=== PATIENT | female | born 2000 | race Caucasian/White ===

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

== ENCOUNTER → 2020-03-03 | Outpatient (REF) | payer OTHER ==
[~2020-03-03] MED LIST changes: +EPIN0.3I11 IM; -MONT10TA4; +MONT5TAB2
[2020-03-03 15:47] LABS: HEMATOCRIT 41.4 % (36.0-47.0); HEMOGLOBIN 11.8 g/dl (12.0-15.5); MEAN CORPUSCULAR HEMOGLOBIN 22.6 pg (27.0-33.0); MEAN CORPUSCULAR HGB CONC 28.5 g/dl (32.0-36.5); MEAN CORPUSCULAR VOLUME 79.5 fl (80.0-96.0); PLATELET COUNT, AUTOMATED 358 10^3/uL (150-450); RED BLOOD COUNT 5.21 10^6/uL (4.00-5.40)
[2020-03-03 16:02] LABS: HCG, SERUM QUALITATIVE NEGATIVE (NEGATIVE)
[2020-03-03 16:14] LABS: FERRITIN 28 NG/ML (8-252); IRON (FE) 31 UG/DL (50-170); PERCENT SATURATION 8.4 % (13.2-45.0); TOTAL IRON BINDING CAPACITY 369 UG/DL (250-450)
[2020-03-03 16:17] LABS: TOTAL 25(OH) VITAMIN D 13.7 NG/ML (30.0-100.0)
[2020-03-03 16:18] LABS: ESTRADIOL 48.4 PG/ML; LUTEINIZING HORMONE 5.5 mIU/mL; PROLACTIN 3.8 NG/ML
[2020-03-03 16:19] LABS: FOLLICLE STIMULATING HORMONE 7.8 mIU/mL
[2020-03-05 18:13] LABS: TESTOSTERONE FREE (DIRECT) 1.5 pg/mL (0.0-4.2)
== END ==
LOC: M SFHCPLAZ 12:36
PROVIDERS: ATTEND Family Medicine
DX: Z86.2 Personal history of diseases of the blood and blood-forming organs and certain disorders involving the immune mechanism (principal); N91.1 Secondary amenorrhea; E55.9 Vitamin D deficiency, unspecified

== ENCOUNTER → 2020-06-01 | Outpatient (CLI) | payer OTHER ==
[~2020-06-01] MED LIST changes: +MONT10TA10; -MONT5TAB2
[2020-06-01 13:54] LABS: HEMATOCRIT 41.2 % (36.0-47.0); HEMOGLOBIN 12.5 g/dl (12.0-15.5); MEAN CORPUSCULAR HEMOGLOBIN 24.1 pg (27.0-33.0); MEAN CORPUSCULAR HGB CONC 30.3 g/dl (32.0-36.5); MEAN CORPUSCULAR VOLUME 79.5 fl (80.0-96.0); PLATELET COUNT, AUTOMATED 373 10^3/uL (150-450); RED BLOOD COUNT 5.18 10^6/uL (4.00-5.40); WHITE BLOOD COUNT 15.3 10^3/uL (4.0-10.0)
[2020-06-01 14:29] LABS: PERCENT SATURATION 20.1 % (13.2-45.0)
== END ==
LOC: M LAB 13:22
PROVIDERS: ATTEND Family Medicine
DX: D50.9 Iron deficiency anemia, unspecified (principal)

== ENCOUNTER 2021-04-27 14:03 | Emergency (ER) | payer OTHER ==
[~2021-04-27] VITALS: Ht 154.9 cm; Wt 116.4 kg
[~2021-04-27 14:03] MED LIST changes: -IBUP200T45 PO; +IBUP200T46 PO; -MONT10TA10; +MONT10TA97
[2021-04-27] MEDS ORDERED: LAMO100T3 (14:11)
[2021-04-27] MEDS ORDERED: EPIN0.3I11 IM (14:19)
[2021-04-27] MEDS ORDERED: diphenhydrAMINE 50MG CAP PO ONE (14:20)
[2021-04-27] MEDS ORDERED: PRED20TA PO (14:20)
[2021-04-27] MEDS ORDERED: predniSONE 20 MG TAB PO ONE (14:20)
[2021-04-27] MEDS ORDERED: FAMOTIDINE 20 MG TAB PO ONE (14:20)
[2021-04-27 16:29] VITALS: BP 115/65
== END 2021-04-27 16:44 | disposition home or self-care (01) ==
LOC: M ED 14:03
DX: T78.04XA Anaphylactic reaction due to fruits and vegetables, initial encounter (principal); F41.8 Other specified anxiety disorders; F32.A Depression, unspecified; J45.909 Unspecified asthma, uncomplicated; Z91.018 Allergy to other foods
CPT/HCPCS: 99284; J7512

== ENCOUNTER → 2021-05-05 | Outpatient (CLI) | payer OTHER ==
[~2021-05-05] MED LIST changes: +LAMO100T3; +PRED20TA PO
[2021-05-05 12:33] LABS: HEMATOCRIT 37.2 % (36.0-47.0); HEMOGLOBIN 11.4 g/dl (12.0-15.5); MEAN CORPUSCULAR HEMOGLOBIN 23.9 pg (27.0-33.0); MEAN CORPUSCULAR HGB CONC 30.6 g/dl (32.0-36.5); PLATELET COUNT, AUTOMATED 331 10^3/uL (150-450); RED BLOOD COUNT 4.77 10^6/uL (4.00-5.40); WHITE BLOOD COUNT 10.4 10^3/uL (4.0-10.0)
[2021-05-05 13:03] LABS: PERCENT SATURATION 6.7 % (13.2-45.0)
== END ==
LOC: M LAB 11:41
PROVIDERS: ATTEND Family Medicine
DX: Z13.1 Encounter for screening for diabetes mellitus (principal)

== ENCOUNTER → 2021-09-15 | Outpatient (CLI) | payer OTHER ==
[~2021-09-15] MED LIST changes: +ALBU2.5V10 NEB; -ALBU83IN NEB
[2021-09-15 14:57] LABS: BASO # 0.1 10^3/uL (0.0-0.2); BASO % 0.5 % (0.0-1.0); EOS # 0.3 10^3/uL (0.0-0.5); EOS % 2.7 % (0.0-3.0); HEMATOCRIT 36.8 % (36.0-47.0); HEMOGLOBIN 10.8 g/dl (12.0-15.5); LYMPH # 2.7 10^3/uL (1.5-5.0); LYMPH % 29.3 % (24.0-44.0); MEAN CORPUSCULAR HEMOGLOBIN 22.2 pg (27.0-33.0); MEAN CORPUSCULAR HGB CONC 29.3 g/dl (32.0-36.5); MEAN CORPUSCULAR VOLUME 75.7 fl (80.0-96.0); MONO # 0.6 10^3/uL (0.0-0.8); MONO % 6.4 % (2.0-8.0); NEUTROPHILS # 5.6 10^3/uL (1.5-8.5); NEUTROPHILS % 60.9 % (36.0-66.0); PLATELET COUNT, AUTOMATED 381 10^3/uL (150-450); RED BLOOD COUNT 4.86 10^6/uL (4.00-5.40); WHITE BLOOD COUNT 9.2 10^3/uL (4.0-10.0)
[2021-09-15 15:18] LABS: HEMOGLOBIN A1c 5.9 %
[2021-09-15 15:31] LABS: ALBUMIN 3.6 GM/DL (3.2-5.2); ALT/SGPT 15 U/L (12-78); BILIRUBIN,TOTAL 0.4 MG/DL (0.2-1.0); BLOOD UREA NITROGEN 12 MG/DL (7-18); CALCIUM LEVEL 9.5 MG/DL (8.5-10.1); CARBON DIOXIDE LEVEL 26 MEQ/L (21-32); CHLORIDE LEVEL 112 MEQ/L (98-107); CREATININE FOR GFR 0.77 MG/DL (0.55-1.30); GLOMERULAR FILTRATION RATE > 60.0 (>60); GLUCOSE, FASTING 92 MG/DL (70-100); IRON (FE) 21 UG/DL (50-170); PERCENT SATURATION 5.2 % (13.2-45.0); POTASSIUM SERUM 3.9 MEQ/L (3.5-5.1); SODIUM LEVEL 143 MEQ/L (136-145); THYROID STIMULATING HORMONE 0.826 uIU/ML (0.358-3.740); TOTAL IRON BINDING CAPACITY 401 UG/DL (250-450); TOTAL PROTEIN 7.6 GM/DL (6.4-8.2)
== END ==
LOC: M LAB 14:10
PROVIDERS: ATTEND Physician Assistant
DX: D50.9 Iron deficiency anemia, unspecified (principal); N92.0 Excessive and frequent menstruation with regular cycle; R73.03 Prediabetes

== ENCOUNTER 2021-10-11 11:15 | Emergency (ER) | payer OTHER ==
[~2021-10-11] VITALS: Ht 154.9 cm; Wt 109.3 kg
[~2021-10-11 11:15] MED LIST changes: -ASMA220A INH; +MOME220A INH
[2021-10-11] MEDS ORDERED: NORE1TAB94 (11:46)
[2021-10-11] MEDS ORDERED: BUSP15TA47 PO (11:46)
[2021-10-11 14:00] VITALS: BP 150/72
== END 2021-10-11 14:07 | disposition home or self-care (01) ==
LOC: M ED 11:15
DX: S63.501A Unspecified sprain of right wrist, initial encounter (principal); X50.0XXA Overexertion from strenuous movement or load, initial encounter; J02.9 Acute pharyngitis, unspecified; J45.909 Unspecified asthma, uncomplicated; Z91.02 Food additives allergy status; Y92.9 Unspecified place or not applicable; Y93.9 Activity, unspecified; Y99.9 Unspecified external cause status

== ENCOUNTER 2021-10-26 13:49 | Emergency (ER) | payer OTHER ==
[~2021-10-26] VITALS: Ht 154.9 cm; Wt 108.6 kg
[~2021-10-26 13:49] MED LIST changes: +BUSP15TA47 PO; +NORE1TAB94
[2021-10-26 15:38] VITALS: BP 135/78
== END 2021-10-26 15:43 | disposition home or self-care (01) ==
LOC: EDBD 13:49 → M ED 13:49
DX: T78.05XA Anaphylactic reaction due to tree nuts and seeds, initial encounter (principal); F41.9 Anxiety disorder, unspecified; J45.909 Unspecified asthma, uncomplicated; Z91.018 Allergy to other foods; Z79.51 Long term (current) use of inhaled steroids; Z79.899 Other long term (current) drug therapy

== ENCOUNTER → 2022-05-13 | Outpatient (REF) | payer OTHER ==
[~2022-05-13] MED LIST changes: -ASMA16.7; +MOME13HF4; +MONT-5 PO; -SING10TA32 PO
== END ==
LOC: M LAB REF 16:23
PROVIDERS: ATTEND Physician Assistant
DX: R11.2 Nausea with vomiting, unspecified (principal)

== ENCOUNTER 2022-06-22 15:18 | Emergency (ER) | payer OTHER ==
[~2022-06-22] VITALS: Ht 154.9 cm; Wt 107.0 kg
[~2022-06-22 15:18] MED LIST changes: +FLUT50SP17; -FLUTISP
[2022-06-22] MEDS ORDERED: BENA25CA4 PO (15:26)
[2022-06-22 19:00] VITALS: BP 141/84
== END 2022-06-22 19:14 | disposition home or self-care (01) ==
LOC: M ED 15:18
DX: T78.1XXA Other adverse food reactions, not elsewhere classified, initial encounter (principal); R21 Rash and other nonspecific skin eruption; J45.909 Unspecified asthma, uncomplicated; F41.9 Anxiety disorder, unspecified; F33.1 Major depressive disorder, recurrent, moderate; Z91.018 Allergy to other foods; Z91.048 Other nonmedicinal substance allergy status

== ENCOUNTER 2022-08-15 20:36 | Emergency (ER) | payer OTHER ==
[2022-08-15] MEDS ORDERED: NS 1,000 ML IV ONE (21:45)
[2022-08-15 22:22] LABS: BASO # 0.1 10^3/uL (0.0-0.2); BASO % 0.4 % (0.0-1.0); EOS # 0.3 10^3/uL (0.0-0.5); EOS % 2.4 % (0.0-3.0); HEMATOCRIT 35.9 % (36.0-47.0); LYMPH # 3.3 10^3/uL (1.5-5.0); LYMPH % 29.6 % (24.0-44.0); MEAN CORPUSCULAR HEMOGLOBIN 24.2 pg (27.0-33.0); MEAN CORPUSCULAR HGB CONC 30.6 g/dl (32.0-36.5); MEAN CORPUSCULAR VOLUME 78.9 fl (80.0-96.0); MONO # 0.6 10^3/uL (0.0-0.8); MONO % 5.7 % (2.0-8.0); NEUTROPHILS % 61.5 % (36.0-66.0); PLATELET COUNT, AUTOMATED 309 10^3/uL (150-450); RED BLOOD COUNT 4.55 10^6/uL (4.00-5.40); WHITE BLOOD COUNT 11.3 10^3/uL (4.0-10.0)
[2022-08-15 22:28] LABS: ALBUMIN 3.3 G/DL (3.2-5.2); ALKALINE PHOSPHATASE 94 U/L (46-116); ALT/SGPT 14 U/L (7.0-40); AST/SGOT 11 U/L (<34); BILIRUBIN,TOTAL 0.3 MG/DL (0.3-1.2); BLOOD UREA NITROGEN 13 MG/DL (9-23); CALCIUM LEVEL 8.4 MG/DL (8.5-10.1); CARBON DIOXIDE LEVEL 25 MMOL/L (20-31); CHLORIDE LEVEL 107 MMOL/L (98-107); GLOMERULAR FILTRATION RATE > 60.0 (>60); GLUCOSE, FASTING 115 MG/DL (60-100); MAGNESIUM LEVEL 1.9 MG/DL (1.8-2.4); PHOSPHORUS LEVEL 3.7 MG/DL (2.5-4.9); POTASSIUM SERUM 3.5 MMOL/L (3.5-5.1); SODIUM LEVEL 141 MMOL/L (136-145); TOTAL PROTEIN 6.6 G/DL (5.7-8.2)
[2022-08-15 22:32] LABS: FREE T4 1.08 NG/DL (0.89-1.76)
[2022-08-15 22:33] LABS: THYROID STIMULATING HORMONE 2.612 uIU/ML (0.55-4.78)
[2022-08-15] MEDS ORDERED: levETIRAcetam INJection 3,000 MG in D5W 100 ML IV ONE (23:25)
[2022-08-15] MEDS ORDERED: KEPP1TAB PO (23:25)
[2022-08-16 01:00] VITALS: BP 133/69; TEMP 98.8; O2SAT 96
== END 2022-08-16 01:19 | disposition home or self-care (01) ==
LOC: M ED 20:36
DX: G40.909 Epilepsy, unspecified, not intractable, without status epilepticus (principal); F10.10 Alcohol abuse, uncomplicated; Z91.048 Other nonmedicinal substance allergy status; Z79.52 Long term (current) use of systemic steroids; Z79.899 Other long term (current) drug therapy
CPT/HCPCS: 70450; 80053; 83735; 84100; 84439; 84443; 85025; 93005; 96365; 99285; J1953

== ENCOUNTER 2022-09-23 08:06 | Emergency (ER) | payer OTHER ==
[~2022-09-23] VITALS: Ht 154.9 cm; Wt 110.4 kg
[~2022-09-23 08:06] MED LIST changes: +KEPP1TAB PO
[2022-09-23 08:12] VITALS: BP 144/88; O2SAT 95
[2022-09-23 08:17] VITALS: TEMP 98.8
[2022-09-23] MEDS ORDERED: NS 1,000 ML IV ONE (08:20)
[2022-09-23 08:37] LABS: BASO % 0.5 % (0.0-1.0); EOS # 0.2 10^3/uL (0.0-0.5); EOS % 1.8 % (0.0-3.0); HEMOGLOBIN 11.9 g/dl (12.0-15.5); LYMPH # 2.4 10^3/uL (1.5-5.0); LYMPH % 27.9 % (24.0-44.0); MEAN CORPUSCULAR HEMOGLOBIN 24.3 pg (27.0-33.0); MEAN CORPUSCULAR HGB CONC 31.3 g/dl (32.0-36.5); MEAN CORPUSCULAR VOLUME 77.7 fl (80.0-96.0); MONO # 0.5 10^3/uL (0.0-0.8); MONO % 6.1 % (2.0-8.0); NEUTROPHILS # 5.4 10^3/uL (1.5-8.5); NEUTROPHILS % 63.2 % (36.0-66.0); PLATELET COUNT, AUTOMATED 346 10^3/uL (150-450); RED BLOOD COUNT 4.89 10^6/uL (4.00-5.40); WHITE BLOOD COUNT 8.5 10^3/uL (4.0-10.0)
[2022-09-23 09:00] LABS: LIPASE 26 U/L (12-53)
[2022-09-23 09:01] LABS: ALBUMIN 3.7 G/DL (3.2-5.2); ALKALINE PHOSPHATASE 96 U/L (46-116); ALT/SGPT 11 U/L (7.0-40); AST/SGOT < 8 U/L (<34); BILIRUBIN,DIRECT 0.4 MG/DL (<0.4); BLOOD UREA NITROGEN 12 MG/DL (9-23); CARBON DIOXIDE LEVEL 24 MMOL/L (20-31); CHLORIDE LEVEL 106 MMOL/L (98-107); CREATININE FOR GFR 0.73 MG/DL (0.55-1.30); GLOMERULAR FILTRATION RATE > 60.0 (>60); GLUCOSE, FASTING 98 MG/DL (60-100); POTASSIUM SERUM 3.9 MMOL/L (3.5-5.1); SODIUM LEVEL 141 MMOL/L (136-145); TOTAL PROTEIN 7.6 G/DL (5.7-8.2)
[2022-09-23] MEDS ORDERED: lamoTRIgine 25MG TAB PO ONE (09:05)
[2022-09-23] MEDS ORDERED: LAMI25TA PO (09:09)
[2022-09-23] MEDS ORDERED: LAMI1TAB7 PO (10:02)
== END 2022-09-23 10:34 | disposition home or self-care (01) ==
LOC: M ED 08:06
DX: G40.909 Epilepsy, unspecified, not intractable, without status epilepticus (principal); Z91.018 Allergy to other foods; Z91.048 Other nonmedicinal substance allergy status; Z79.52 Long term (current) use of systemic steroids; Z79.899 Other long term (current) drug therapy

== ENCOUNTER 2022-10-11 07:39 | Emergency (ER) | payer OTHER ==
[~2022-10-11] VITALS: Ht 154.9 cm; Wt 104.5 kg
[~2022-10-11 07:39] MED LIST changes: +LAMI1TAB7 PO; +LAMI25TA PO
[2022-10-11 07:50] VITALS: BP 138/88; TEMP 99.6; O2SAT 96
[2022-10-11] MEDS ORDERED: ONDANSETRON 4MG 2ML VIAL IV ONE (08:15)
[2022-10-11] MEDS ORDERED: ACETAMINOPHEN 500 MG TAB PO ONE (08:15)
[2022-10-11 08:36] LABS: IONIZED CALCIUM 4.6 MG/DL (4.5-5.3)
[2022-10-11 08:46] LABS: BASO % 0.5 % (0.0-1.0); EOS # 0.2 10^3/uL (0.0-0.5); EOS % 2.1 % (0.0-3.0); HEMATOCRIT 37.1 % (36.0-47.0); HEMOGLOBIN 11.2 g/dl (12.0-15.5); LYMPH # 1.7 10^3/uL (1.5-5.0); LYMPH % 20.9 % (24.0-44.0); MEAN CORPUSCULAR HEMOGLOBIN 23.9 pg (27.0-33.0); MEAN CORPUSCULAR HGB CONC 30.2 g/dl (32.0-36.5); MEAN CORPUSCULAR VOLUME 79.1 fl (80.0-96.0); MONO # 0.5 10^3/uL (0.0-0.8); MONO % 6.5 % (2.0-8.0); NEUTROPHILS # 5.5 10^3/uL (1.5-8.5); NEUTROPHILS % 69.7 % (36.0-66.0); PLATELET COUNT, AUTOMATED 304 10^3/uL (150-450); RED BLOOD COUNT 4.69 10^6/uL (4.00-5.40); WHITE BLOOD COUNT 7.9 10^3/uL (4.0-10.0)
[2022-10-11] MEDS ORDERED: lamoTRIgine 100MG TAB PO ONE ×2 (09:00)
[2022-10-11] MEDS ORDERED: lamoTRIgine 25MG TAB PO ONE (09:00)
[2022-10-11 09:08] LABS: ALBUMIN 3.4 G/DL (3.2-5.2); ALKALINE PHOSPHATASE 82 U/L (46-116); ALT/SGPT 11 U/L (7.0-40); AST/SGOT 9 U/L (<34); BILIRUBIN,DIRECT 0.3 MG/DL (<0.4); BLOOD UREA NITROGEN 10 MG/DL (9-23); CALCIUM LEVEL 8.8 MG/DL (8.5-10.1); CARBON DIOXIDE LEVEL 24 MMOL/L (20-31); CHLORIDE LEVEL 107 MMOL/L (98-107); CREATININE FOR GFR 0.77 MG/DL (0.55-1.30); GLOMERULAR FILTRATION RATE > 60.0 (>60); GLUCOSE, FASTING 99 MG/DL (60-100); MAGNESIUM LEVEL 2.1 MG/DL (1.8-2.4); PHOSPHORUS LEVEL 2.3 MG/DL (2.5-4.9); SODIUM LEVEL 141 MMOL/L (136-145)
[2022-10-11] MEDS ORDERED: LAMI1TAB8 PO (09:49)
== END 2022-10-11 10:03 | disposition home or self-care (01) ==
LOC: M ED 07:39
DX: G40.909 Epilepsy, unspecified, not intractable, without status epilepticus (principal); J45.909 Unspecified asthma, uncomplicated; D64.9 Anemia, unspecified; F41.9 Anxiety disorder, unspecified; F32.A Depression, unspecified; Z79.52 Long term (current) use of systemic steroids; Z79.899 Other long term (current) drug therapy
CPT/HCPCS: 80048; 80076; 82140; 82330; 83735; 84100; 85025; 93041; 94760; 96374; 99284; J2405

== ENCOUNTER 2023-06-01 19:33 | Emergency (ER) | payer OTHER ==
[~2023-06-01] VITALS: Ht 154.9 cm; Wt 123.0 kg
[~2023-06-01 19:33] MED LIST changes: -FLUT50SP17; +FLUTISP; +LAMI1TAB8 PO; +TIZA4CAP3 PO; -TIZA4CAP6 PO
[2023-06-01] MEDS ORDERED: DIPH-435 PO (19:46)
[2023-06-01] MEDS: predniSONE 20 MG TAB PO ONE (20:36)
[2023-06-01] MEDS: FAMOTIDINE 20MG/2ML VIAL IVP ONE (20:52)
[2023-06-01 20:58] LABS: BASO # 0.1 10^3/uL (0.0-0.2); BASO % 0.5 % (0.0-1.0); EOS # 0.6 10^3/uL (0.0-0.5); EOS % 4.1 % (0.0-3.0); HEMATOCRIT 38.1 % (36.0-47.0); HEMOGLOBIN 11.6 g/dl (12.0-15.5); LYMPH # 3.7 10^3/uL (1.5-5.0); LYMPH % 25.5 % (24.0-44.0); MEAN CORPUSCULAR HEMOGLOBIN 23.8 pg (27.0-33.0); MEAN CORPUSCULAR HGB CONC 30.4 g/dl (32.0-36.5); MEAN CORPUSCULAR VOLUME 78.1 fl (80.0-96.0); MONO # 0.8 10^3/uL (0.0-0.8); MONO % 5.7 % (2.0-8.0); NEUTROPHILS # 9.3 10^3/uL (1.5-8.5); NEUTROPHILS % 63.7 % (36.0-66.0); PLATELET COUNT, AUTOMATED 379 10^3/uL (150-450); RED BLOOD COUNT 4.88 10^6/uL (4.00-5.40); WHITE BLOOD COUNT 14.6 10^3/uL (4.0-10.0)
[2023-06-01 21:22] LABS: ALBUMIN 3.3 G/DL (3.2-5.2); ALKALINE PHOSPHATASE 93 U/L (46-116); ALT/SGPT 18 U/L (7.0-40); AST/SGOT 14 U/L (<34); BILIRUBIN,TOTAL 0.5 MG/DL (0.3-1.2); BLOOD UREA NITROGEN 13 MG/DL (9-23); CALCIUM LEVEL 8.7 MG/DL (8.5-10.1); CARBON DIOXIDE LEVEL 26 MMOL/L (20-31); CHLORIDE LEVEL 105 MMOL/L (98-107); CREATININE FOR GFR 0.73 MG/DL (0.55-1.30); GLOMERULAR FILTRATION RATE > 60.0 (>60); GLUCOSE, FASTING 111 MG/DL (60-100); MAGNESIUM LEVEL 1.8 MG/DL (1.8-2.4); POTASSIUM SERUM 3.6 MMOL/L (3.5-5.1); SODIUM LEVEL 139 MMOL/L (136-145); TOTAL PROTEIN 7.2 G/DL (5.7-8.2)
[2023-06-01 21:40] VITALS: BP 120/71; TEMP 98; O2SAT 98
[2023-06-01] MEDS ORDERED: EPIN0.3I11 IM (22:03)
== END 2023-06-01 22:14 | disposition home or self-care (01) ==
LOC: M ED 19:33
DX: T78.02XA Anaphylactic reaction due to shellfish (crustaceans), initial encounter (principal); Z91.018 Allergy to other foods; Z91.013 Allergy to seafood; Z88.8 Allergy status to other drugs, medicaments and biological substances; Z79.52 Long term (current) use of systemic steroids; Z79.02 Long term (current) use of antithrombotics/antiplatelets; Z79.899 Other long term (current) drug therapy
CPT/HCPCS: 80053; 83735; 85025; 86140; 96374; 99284; J7512; S0028

== ENCOUNTER → 2023-06-12 | Outpatient (CLI) | payer OTHER ==
[~2023-06-12] MED LIST changes: +DIPH-435 PO
[2023-06-12 17:23] LABS: BASO # 0.1 10^3/uL (0.0-0.2); BASO % 0.4 % (0.0-1.0); EOS # 0.5 10^3/uL (0.0-0.5); EOS % 4.1 % (0.0-3.0); HEMATOCRIT 39.7 % (36.0-47.0); HEMOGLOBIN 11.9 g/dl (12.0-15.5); LYMPH # 2.8 10^3/uL (1.5-5.0); LYMPH % 21.4 % (24.0-44.0); MEAN CORPUSCULAR HEMOGLOBIN 23.8 pg (27.0-33.0); MEAN CORPUSCULAR VOLUME 79.4 fl (80.0-96.0); MONO # 0.8 10^3/uL (0.0-0.8); MONO % 6.2 % (2.0-8.0); NEUTROPHILS # 8.7 10^3/uL (1.5-8.5); NEUTROPHILS % 67.6 % (36.0-66.0); PLATELET COUNT, AUTOMATED 380 10^3/uL (150-450); WHITE BLOOD COUNT 12.9 10^3/uL (4.0-10.0)
[2023-06-12 17:37] LABS: FREE T4 1.06 NG/DL (0.89-1.76); THYROID STIMULATING HORMONE 0.906 uIU/ML (0.55-4.78); TOTAL IRON BINDING CAPACITY 379 UG/DL (250-425)
[2023-06-12 17:38] LABS: FERRITIN 30.7 NG/ML (7.3-270.7); IRON (FE) 23 UG/DL (50-170); PERCENT SATURATION 6.1 % (13.2-45.0)
[2023-06-12 17:39] LABS: TOTAL 25(OH) VITAMIN D 12.5 NG/ML (20.0-100.0)
[2023-06-12 17:40] LABS: VITAMIN B12 LEVEL 475 PG/ML (211-911)
[2023-06-12 17:47] LABS: HEMOGLOBIN A1c 5.1 % (4.0-6.0)
[2023-06-12 17:58] LABS: ALBUMIN 3.2 G/DL (3.2-5.2); ALKALINE PHOSPHATASE 93 U/L (46-116); ALT/SGPT 13 U/L (7.0-40); AST/SGOT 9 U/L (<34); BILIRUBIN,TOTAL 0.4 MG/DL (0.3-1.2); BLOOD UREA NITROGEN 13 MG/DL (9-23); CALCIUM LEVEL 9.4 MG/DL (8.5-10.1); CARBON DIOXIDE LEVEL 27 MMOL/L (20-31); CHLORIDE LEVEL 105 MMOL/L (98-107); CHOLESTEROL LEVEL 179 MG/DL (<200); CREATININE FOR GFR 0.78 MG/DL (0.55-1.30); GLOMERULAR FILTRATION RATE > 60.0 (>60); GLUCOSE, FASTING 83 MG/DL (60-100); HDL CHOLESTEROL 51.1 MG/DL (>40); LDL CHOLESTEROL 102.1 MG/DL (<100); NON-HDL-C 127.9 MG/DL; POTASSIUM SERUM 4.1 MMOL/L (3.5-5.1); SODIUM LEVEL 141 MMOL/L (136-145); TOTAL PROTEIN 7.5 G/DL (5.7-8.2); TRIGLYCERIDES LEVEL 129 MG/DL (<150)
== END ==
LOC: M PLALAB 15:27
PROVIDERS: ATTEND Physician Assistant
DX: D50.9 Iron deficiency anemia, unspecified (principal); R53.83 Other fatigue; R63.5 Abnormal weight gain; G40.909 Epilepsy, unspecified, not intractable, without status epilepticus; E55.9 Vitamin D deficiency, unspecified

== ENCOUNTER → 2023-08-25 | Outpatient (CLI) | payer OTHER ==
[2023-08-25 15:50] LABS: BASO % 0.4 % (0.0-1.0); EOS # 0.4 10^3/uL (0.0-0.5); EOS % 4.3 % (0.0-3.0); HEMOGLOBIN 11.1 g/dl (12.0-15.5); LYMPH # 2.3 10^3/uL (1.5-5.0); LYMPH % 27.4 % (24.0-44.0); MEAN CORPUSCULAR HEMOGLOBIN 23.6 pg (27.0-33.0); MEAN CORPUSCULAR VOLUME 78.7 fl (80.0-96.0); MONO # 0.4 10^3/uL (0.0-0.8); MONO % 5.1 % (2.0-8.0); NEUTROPHILS # 5.3 10^3/uL (1.5-8.5); NEUTROPHILS % 62.4 % (36.0-66.0); PLATELET COUNT, AUTOMATED 328 10^3/uL (150-450); WHITE BLOOD COUNT 8.5 10^3/uL (4.0-10.0)
[2023-08-25 16:19] LABS: ALBUMIN 3.2 G/DL (3.2-5.2); ALKALINE PHOSPHATASE 98 U/L (46-116); ALT/SGPT 15 U/L (7.0-40); AST/SGOT 8 U/L (<34); BILIRUBIN,TOTAL 0.9 MG/DL (0.3-1.2); BLOOD UREA NITROGEN 10 MG/DL (9-23); CALCIUM LEVEL 8.7 MG/DL (8.5-10.1); CARBON DIOXIDE LEVEL 27 MMOL/L (20-31); CHLORIDE LEVEL 109 MMOL/L (98-107); CREATININE FOR GFR 0.74 MG/DL (0.55-1.30); GLOMERULAR FILTRATION RATE > 60.0 (>60); GLUCOSE, FASTING 99 MG/DL (60-100); IRON (FE) 42 UG/DL (50-170); PERCENT SATURATION 11.8 % (13.2-45.0); POTASSIUM SERUM 4.2 MMOL/L (3.5-5.1); SODIUM LEVEL 141 MMOL/L (136-145); TOTAL IRON BINDING CAPACITY 356 UG/DL (250-425)
[2023-08-25 16:20] LABS: FERRITIN 20.3 NG/ML (7.3-270.7); FOLATE > 24.0 NG/ML (>5.4); THYROID STIMULATING HORMONE 0.959 uIU/ML (0.55-4.78)
[2023-08-25 16:21] LABS: FREE T4 1.01 NG/DL (0.89-1.76); VITAMIN B12 LEVEL 407 PG/ML (211-911)
[2023-08-25 16:37] LABS: TOTAL 25(OH) VITAMIN D 11.9 NG/ML (20.0-100.0)
== END ==
LOC: M PLALAB 13:36 → M LAB 13:36
PROVIDERS: ATTEND Physician Assistant
DX: E55.9 Vitamin D deficiency, unspecified (principal); D50.9 Iron deficiency anemia, unspecified; N92.1 Excessive and frequent menstruation with irregular cycle; G40.909 Epilepsy, unspecified, not intractable, without status epilepticus

== ENCOUNTER → 2023-11-22 | Outpatient (CLI) | payer OTHER ==
[2023-11-22 18:27] LABS: BASO % 0.4 % (0.0-1.0); EOS # 0.3 10^3/uL (0.0-0.5); EOS % 3.2 % (0.0-3.0); HEMATOCRIT 37.6 % (36.0-47.0); HEMOGLOBIN 11.2 g/dl (12.0-15.5); LYMPH # 2.9 10^3/uL (1.5-5.0); LYMPH % 27.9 % (24.0-44.0); MEAN CORPUSCULAR HEMOGLOBIN 23.3 pg (27.0-33.0); MEAN CORPUSCULAR HGB CONC 29.8 g/dl (32.0-36.5); MEAN CORPUSCULAR VOLUME 78.2 fl (80.0-96.0); MONO # 0.5 10^3/uL (0.0-0.8); MONO % 4.9 % (2.0-8.0); NEUTROPHILS # 6.6 10^3/uL (1.5-8.5); NEUTROPHILS % 63.3 % (36.0-66.0); PLATELET COUNT, AUTOMATED 398 10^3/uL (150-450); RED BLOOD COUNT 4.81 10^6/uL (4.00-5.40); WHITE BLOOD COUNT 10.5 10^3/uL (4.0-10.0)
[2023-11-22 18:53] LABS: HEMOGLOBIN A1c 5.5 % (4.0-6.0)
[2023-11-22 18:57] LABS: ALBUMIN 3.6 G/DL (3.2-5.2); ALKALINE PHOSPHATASE 103 U/L (46-116); ALT/SGPT 16 U/L (7.0-40); AST/SGOT 15 U/L (<34); BILIRUBIN,TOTAL 0.4 MG/DL (0.3-1.2); BLOOD UREA NITROGEN 8 MG/DL (9-23); CALCIUM LEVEL 9.1 MG/DL (8.5-10.1); CARBON DIOXIDE LEVEL 30 MMOL/L (20-31); CHLORIDE LEVEL 104 MMOL/L (98-107); CREATININE FOR GFR 0.87 MG/DL (0.55-1.30); GLOMERULAR FILTRATION RATE > 60.0 (>60); GLUCOSE, FASTING 74 MG/DL (60-100); IRON (FE) 19 UG/DL (50-170); PERCENT SATURATION 5.2 % (13.2-45.0); POTASSIUM SERUM 3.3 MMOL/L (3.5-5.1); SODIUM LEVEL 139 MMOL/L (136-145); TOTAL IRON BINDING CAPACITY 362 UG/DL (250-425); TOTAL PROTEIN 7.8 G/DL (5.7-8.2)
[2023-11-22 18:58] LABS: FERRITIN 17.9 NG/ML (7.3-270.7); THYROID STIMULATING HORMONE 1.224 uIU/ML (0.55-4.78)
[2023-11-22 18:59] LABS: VITAMIN B12 LEVEL 475 PG/ML (211-911)
[2023-11-22 19:00] LABS: FREE T4 1.16 NG/DL (0.89-1.76)
== END ==
LOC: M PLALAB 15:55
PROVIDERS: ATTEND Physician Assistant
DX: R25.2 Cramp and spasm (principal); D50.9 Iron deficiency anemia, unspecified; G40.909 Epilepsy, unspecified, not intractable, without status epilepticus; Z83.3 Family history of diabetes mellitus

== ENCOUNTER 2023-11-26 20:33 | Emergency (ER) | payer OTHER ==
[~2023-11-26] VITALS: Ht 154.9 cm; Wt 125.5 kg
[2023-11-26 20:34] VITALS: TEMP 97.2
[2023-11-27] MEDS: KETOROLAC 60MG 2ML VIAL IM ONE (00:13)
[2023-11-27] MEDS: predniSONE 20 MG TAB PO ONE (00:14)
[2023-11-27] MEDS: IPRATROPIUM 0.5MG/ALBUTEROL 2.5MG INH SOL UD 3ML (DUONEB) NEB ONE (00:15)
[2023-11-27] MEDS: FLUTICASONE PROP 0.05% NASAL SPRAY 16 GM (FLONASE) NARES ONE (00:15)
[2023-11-27 01:13] LABS: RSV AMPLIFICATION NEGATIVE (NEGATIVE)
[2023-11-27] MEDS ORDERED: PRED20TA PO (01:37)
[2023-11-27] MEDS ORDERED: NIRM1TAB13 PO (01:47)
[2023-11-27 02:00] VITALS: BP 136/76; O2SAT 98
== END 2023-11-27 02:15 | disposition home or self-care (01) ==
LOC: M ED 20:33
DX: U07.1 COVID-19 (principal); J45.909 Unspecified asthma, uncomplicated; Z88.8 Allergy status to other drugs, medicaments and biological substances; Z91.018 Allergy to other foods; Z91.048 Other nonmedicinal substance allergy status; Z79.52 Long term (current) use of systemic steroids; Z79.899 Other long term (current) drug therapy
CPT/HCPCS: 87631; 96372; 99283; J1885; J7512

== ENCOUNTER → 2024-02-26 | Outpatient (REF) | payer BC ==
[~2024-02-26] MED LIST changes: +NIRM1TAB13 PO
[2024-02-27 10:54] LABS: Trichomonas vaginalis (AMP) NOT DETECTED (NEGATIVE)
[2024-02-27 11:18] LABS: GC DNA AMPLIFICATION NEGATIVE (NEGATIVE)
== END ==
LOC: M LAB REF 09:27
PROVIDERS: ATTEND Student in an Organized Health Care Education/Training Program
DX: R30.0 Dysuria (principal)

== ENCOUNTER 2024-03-26 11:22 | Emergency (ER) | payer BC ==
[~2024-03-26] VITALS: Ht 154.9 cm; Wt 124.7 kg
[2024-03-26 12:12] LABS: HEMATOCRIT 37.7 % (36.0-47.0); HEMOGLOBIN 11.4 g/dl (12.0-15.5); MEAN CORPUSCULAR HEMOGLOBIN 23.1 pg (27.0-33.0); MEAN CORPUSCULAR HGB CONC 30.2 g/dl (32.0-36.5); MEAN CORPUSCULAR VOLUME 76.3 fl (80.0-96.0); PLATELET COUNT, AUTOMATED 378 10^3/uL (150-450); RED BLOOD COUNT 4.94 10^6/uL (4.00-5.40); WHITE BLOOD COUNT 10.7 10^3/uL (4.0-10.0)
[2024-03-26 13:10] LABS: HCG, SERUM QUALITATIVE NEGATIVE (NEGATIVE)
[2024-03-26 13:18] LABS: BLOOD UREA NITROGEN 8 MG/DL (9-23); CALCIUM LEVEL 8.6 MG/DL (8.5-10.1); CARBON DIOXIDE LEVEL 25 MMOL/L (20-31); CHLORIDE LEVEL 105 MMOL/L (98-107); CREATININE FOR GFR 0.76 MG/DL (0.55-1.30); GLOMERULAR FILTRATION RATE > 60.0 (>60); GLUCOSE, FASTING 99 MG/DL (60-100); POTASSIUM SERUM 4.1 MMOL/L (3.5-5.1); SODIUM LEVEL 141 MMOL/L (136-145)
[2024-03-26 14:53] VITALS: BP 136/79; TEMP 97.8; O2SAT 98
== END 2024-03-26 15:18 | disposition home or self-care (01) ==
LOC: M ED 11:22 → EDBD 11:22 → M ED 15:18
DX: G40.909 Epilepsy, unspecified, not intractable, without status epilepticus (principal); Z79.899 Other long term (current) drug therapy; Z88.8 Allergy status to other drugs, medicaments and biological substances; D64.9 Anemia, unspecified

== ENCOUNTER → 2024-03-27 | Outpatient (CLI) | payer BC ==
[2024-03-27 10:14] LABS: BASO # 0.1 10^3/uL (0.0-0.2); BASO % 0.5 % (0.0-1.0); EOS # 0.2 10^3/uL (0.0-0.5); EOS % 1.8 % (0.0-3.0); HEMATOCRIT 38.2 % (36.0-47.0); HEMOGLOBIN 11.5 g/dl (12.0-15.5); LYMPH # 2.8 10^3/uL (1.5-5.0); LYMPH % 27.5 % (24.0-44.0); MEAN CORPUSCULAR HGB CONC 30.1 g/dl (32.0-36.5); MEAN CORPUSCULAR VOLUME 76.4 fl (80.0-96.0); MONO # 0.5 10^3/uL (0.0-0.8); MONO % 5.2 % (2.0-8.0); NEUTROPHILS # 6.6 10^3/uL (1.5-8.5); NEUTROPHILS % 64.5 % (36.0-66.0); PLATELET COUNT, AUTOMATED 393 10^3/uL (150-450); WHITE BLOOD COUNT 10.3 10^3/uL (4.0-10.0)
[2024-03-27 10:27] LABS: PARTIAL THROMBOPLASTIN TIME 29.2 SECONDS (24.8-34.2); PROTHROMBIN TIME 13.5 SECONDS (12.5-14.5)
[2024-03-27 10:53] LABS: COLLAGEN EPINEPHRINE 149 SECONDS (74-162)
== END ==
LOC: M PLALAB 09:37
PROVIDERS: ATTEND Internal Medicine Hematology
DX: D50.9 Iron deficiency anemia, unspecified (principal); R58 Hemorrhage, not elsewhere classified

== ENCOUNTER 2024-04-10 13:50 | Outpatient (CLI) | payer BC ==
[~2024-04-10] VITALS: Ht 154.9 cm; Wt 122.7 kg
[~2024-04-10 13:50] MED LIST changes: +ALBUTEROL SULFATE 2.5MG/0.5ML INH NEB SOLN INH PRN; +EPINEPHrine INJ 1 MG/ML 1ML AMP IM PRN; +diphenhydrAMINE 50MG/ML VIAL IV PRN; +methylPREDNISolone 125MG 2ML VIAL IV PRN
[2024-04-10 14:00] VITALS: BP 132/89; O2SAT 95
[2024-04-10] MEDS: IRON SUCROSE 300 MG in NS 250 ML IV ONE (14:06)
[2024-04-10 15:15] VITALS: BP 152/85; O2SAT 100
== END 2024-04-10 16:15 ==
LOC: M INFU 13:50
PROVIDERS: ATTEND Internal Medicine Hematology
DX: D50.9 Iron deficiency anemia, unspecified (principal); Z88.8 Allergy status to other drugs, medicaments and biological substances; Z91.018 Allergy to other foods; Z91.048 Other nonmedicinal substance allergy status
CPT/HCPCS: 96365; 96366; J1756

== ENCOUNTER 2024-04-24 11:17 | Outpatient (CLI) | payer BC ==
[~2024-04-24] VITALS: Ht 154.9 cm; Wt 122.0 kg
[2024-04-24 11:15] VITALS: BP 135/87; O2SAT 96
[2024-04-24] MEDS: IRON SUCROSE 300 MG in NS 250 ML OVER 90 MIN. IV ONE (12:01)
[2024-04-24 13:40] VITALS: BP 132/76; O2SAT 100
[2024-04-25] MEDS ORDERED: ONDA-282 PO (13:27)
== END 2024-04-24 13:40 ==
LOC: M INFU 11:17
PROVIDERS: ATTEND Internal Medicine Hematology
DX: D50.9 Iron deficiency anemia, unspecified (principal); Z88.8 Allergy status to other drugs, medicaments and biological substances; Z91.018 Allergy to other foods; Z91.048 Other nonmedicinal substance allergy status
CPT/HCPCS: 96365; 96366; J1756

== ENCOUNTER 2024-04-25 08:08 | Emergency (ER) | payer BC ==
[~2024-04-25] VITALS: Ht 154.9 cm; Wt 121.0 kg
[~2024-04-25 08:08] MED LIST changes: -ALBUTEROL SULFATE 2.5MG/0.5ML INH NEB SOLN INH PRN; -EPINEPHrine INJ 1 MG/ML 1ML AMP IM PRN; -diphenhydrAMINE 50MG/ML VIAL IV PRN; -methylPREDNISolone 125MG 2ML VIAL IV PRN
[2024-04-25 09:31] LABS: BASO % 0.3 % (0.0-1.0); EOS # 0.1 10^3/uL (0.0-0.5); EOS % 0.6 % (0.0-3.0); HEMATOCRIT 39.9 % (36.0-47.0); LYMPH # 0.6 10^3/uL (1.5-5.0); LYMPH % 4.4 % (24.0-44.0); MEAN CORPUSCULAR HEMOGLOBIN 23.3 pg (27.0-33.0); MEAN CORPUSCULAR HGB CONC 30.1 g/dl (32.0-36.5); MEAN CORPUSCULAR VOLUME 77.6 fl (80.0-96.0); MONO # 0.6 10^3/uL (0.0-0.8); NEUTROPHILS # 13.2 10^3/uL (1.5-8.5); NEUTROPHILS % 90.4 % (36.0-66.0); PLATELET COUNT, AUTOMATED 369 10^3/uL (150-450); RED BLOOD COUNT 5.14 10^6/uL (4.00-5.40); WHITE BLOOD COUNT 14.5 10^3/uL (4.0-10.0)
[2024-04-25 09:51] LABS: LIPASE 22 U/L (12-53)
[2024-04-25 09:52] LABS: AMYLASE 99 U/L (30-118); HCG, SERUM QUALITATIVE NEGATIVE (NEGATIVE)
[2024-04-25 09:53] LABS: ALBUMIN 3.7 G/DL (3.2-5.2); ALKALINE PHOSPHATASE 107 U/L (35-104); ALT/SGPT 20 U/L (7.0-40); AST/SGOT 15 U/L (<34); BILIRUBIN,DIRECT 0.3 MG/DL (<0.4); BILIRUBIN,TOTAL 0.9 MG/DL (0.3-1.2); BLOOD UREA NITROGEN 11 MG/DL (9-23); CALCIUM LEVEL 8.7 MG/DL (8.5-10.1); CARBON DIOXIDE LEVEL 26 MMOL/L (20-31); CHLORIDE LEVEL 107 MMOL/L (98-107); CREATININE FOR GFR 0.75 MG/DL (0.55-1.30); GLOMERULAR FILTRATION RATE > 60.0 (>60); GLUCOSE, FASTING 116 MG/DL (60-100); POTASSIUM SERUM 4.1 MMOL/L (3.5-5.1); SODIUM LEVEL 142 MMOL/L (136-145); TOTAL PROTEIN 7.9 G/DL (5.7-8.2)
[2024-04-25 12:33] LABS: KETONE, URINE AUTO RFX NEGATIVE (NEGATIVE); LEUKOCYTE ESTERASE UR AUTO RFX NEGATIVE (NEGATIVE); MUCUS, URINE RFX SMALL (NEGATIVE); NITRITE, URINE AUTO RFX NEGATIVE (NEGATIVE); RBC, URINE AUTO RFX 1 /HPF (0-3); SQUAM EPITHELIAL CELL UR AURFX 3 /HPF (0-6); WBC, URINE AUTO RFX 1 /HPF (0-3)
[2024-04-25] MEDS: ONDANSETRON 4MG ORAL DISINTEGRATING TAB PO ONE (12:38)
[2024-04-25] MEDS ORDERED: ONDA-282 PO (13:27)
[2024-04-25 13:29] VITALS: BP 140/94; TEMP 97.1; O2SAT 98
== END 2024-04-25 13:32 | disposition home or self-care (01) ==
LOC: M ED 08:08
DX: R11.2 Nausea with vomiting, unspecified (principal); R19.7 Diarrhea, unspecified; D50.9 Iron deficiency anemia, unspecified; G40.909 Epilepsy, unspecified, not intractable, without status epilepticus; Z79.52 Long term (current) use of systemic steroids; Z79.83 Long term (current) use of bisphosphonates; Z79.899 Other long term (current) drug therapy; Z91.018 Allergy to other foods; Z88.8 Allergy status to other drugs, medicaments and biological substances

== ENCOUNTER → 2024-09-03 | Outpatient (CLI) | payer BC ==
[~2024-09-03] MED LIST changes: +LAMI1TAB9 PO; +ONDA-282 PO
[2024-09-03 15:02] LABS: BASO # 0.1 10^3/uL (0.0-0.2); BASO % 0.6 % (0.0-1.0); EOS # 0.4 10^3/uL (0.0-0.5); EOS % 4.2 % (0.0-3.0); LYMPH # 2.8 10^3/uL (1.5-5.0); LYMPH % 28.8 % (24.0-44.0); MONO # 0.6 10^3/uL (0.0-0.8); MONO % 6.3 % (2.0-8.0); NEUTROPHILS # 5.8 10^3/uL (1.5-8.5); NEUTROPHILS % 59.7 % (36.0-66.0); PLATELET COUNT, AUTOMATED 316 10^3/uL (150-450)
[2024-09-03 15:27] LABS: ALT/SGPT 15 U/L (7.0-40); AST/SGOT 16 U/L (<34); CALCIUM LEVEL 9.3 MG/DL (8.5-10.1); CARBON DIOXIDE LEVEL 29 MMOL/L (20-31); CHLORIDE LEVEL 106 MMOL/L (98-107); CREATININE FOR GFR 0.76 MG/DL (0.55-1.30); GLOMERULAR FILTRATION RATE > 90.0 (>60); IRON (FE) 43 UG/DL (50-170); PERCENT SATURATION 13.5 % (13.2-45.0); POTASSIUM SERUM 3.9 MMOL/L (3.5-5.1); SODIUM LEVEL 143 MMOL/L (136-145)
[2024-09-03 15:29] LABS: TOTAL 25(OH) VITAMIN D 25.9 NG/ML (20.0-100.0); VITAMIN B12 LEVEL 392 PG/ML (211-911)
== END ==
LOC: M LAB 14:26
PROVIDERS: ATTEND Registered Nurse
DX: D50.9 Iron deficiency anemia, unspecified (principal)

== ENCOUNTER 2024-12-15 19:21 | Emergency (ER) | payer BC ==
[~2024-12-15] VITALS: Ht 154.9 cm; Wt 122.7 kg
[~2024-12-15 19:21] MED LIST changes: -IBUP-1022 PO; +IBUP600T42 PO; +NORE-23; -NORE1TAB94
[2024-12-15 21:03] LABS: BASO # 0.1 10^3/uL (0.0-0.2); BASO % 0.7 % (0.0-1.0); EOS # 0.3 10^3/uL (0.0-0.5); EOS % 2.5 % (0.0-3.0); LYMPH # 4.0 10^3/uL (1.5-5.0); LYMPH % 30.2 % (24.0-44.0); MONO # 0.8 10^3/uL (0.0-0.8); MONO % 6.0 % (2.0-8.0); NEUTROPHILS # 7.9 10^3/uL (1.5-8.5); NEUTROPHILS % 60.1 % (36.0-66.0); PLATELET COUNT, AUTOMATED 382 10^3/uL (150-450)
[2024-12-15 21:28] LABS: ALT/SGPT 16 U/L (7.0-40); AST/SGOT 19 U/L (<34); CALCIUM LEVEL 9.2 MG/DL (8.5-10.1); CARBON DIOXIDE LEVEL 27 MMOL/L (20-31); CHLORIDE LEVEL 105 MMOL/L (98-107); CREATININE FOR GFR 0.92 MG/DL (0.55-1.30); GLOMERULAR FILTRATION RATE 89.2 (>60); POTASSIUM SERUM 3.6 MMOL/L (3.5-5.1); SODIUM LEVEL 142 MMOL/L (136-145)
[2024-12-15 21:33] LABS: HCG, SERUM QUALITATIVE NEGATIVE (NEGATIVE)
[2024-12-15 21:41] LABS: KETONE, URINE AUTO RFX NEGATIVE (NEGATIVE); LEUKOCYTE ESTERASE UR AUTO RFX NEGATIVE (NEGATIVE); MUCUS, URINE RFX SMALL (NEGATIVE); NITRITE, URINE AUTO RFX NEGATIVE (NEGATIVE); RBC, URINE AUTO RFX 1 /HPF (0-3); SQUAM EPITHELIAL CELL UR AURFX 3 /HPF (0-6); WBC, URINE AUTO RFX 1 /HPF (0-3)
[2024-12-15 23:40] VITALS: BP 133/84; TEMP 98.2; O2SAT 96
== END 2024-12-15 23:42 | disposition left against medical advice (07) ==
LOC: M ED 19:21
DX: Z53.21 Procedure and treatment not carried out due to patient leaving prior to being seen by health care provider (principal)

== ENCOUNTER 2024-12-24 12:34 | Outpatient (CLI) | payer BC ==
[~2024-12-24] VITALS: Ht 154.9 cm; Wt 122.7 kg
[~2024-12-24 12:34] MED LIST changes: +ALBUTEROL SULFATE 2.5 MG/0.5 ML INH CONCENTRATE NEB SOLN INH PRN; +EPINEPHrine INJ 1 MG/ML 1ML AMP IM PRN; +diphenhydrAMINE 50 MG/ML VIAL IV PRN
[2024-12-24 12:50] VITALS: BP 128/72; O2SAT 99
[2024-12-24] MEDS: IRON SUCROSE 300 MG in NS 250 ML IV ONE (13:13)
[2024-12-24] MEDS: diphenhydrAMINE 25MG PO PRIOR TO INFUSION PO ONE (13:13)
[2024-12-24] MEDS: ACETAMINOPHEN 650MG PO PRIOR TO INFUSION PO ONE (13:14)
[2024-12-24] MEDS: dexameTHASONE 20 MG IV PRIOR TO INFUSION IV ONE (13:14)
[2024-12-24 14:59] VITALS: BP 113/64; O2SAT 97
== END 2024-12-24 15:00 ==
LOC: M INFU 12:34
PROVIDERS: ATTEND Internal Medicine Medical Oncology
DX: D50.9 Iron deficiency anemia, unspecified (principal); Z88.8 Allergy status to other drugs, medicaments and biological substances; Z91.018 Allergy to other foods; Z91.048 Other nonmedicinal substance allergy status
CPT/HCPCS: 96365; 96366; J1756

== ENCOUNTER 2024-12-31 12:16 | Outpatient (CLI) | payer BC ==
[~2024-12-31] VITALS: Ht 154.9 cm; Wt 100.0 kg
[2024-12-31 12:30] VITALS: BP 127/78; O2SAT 97
[2024-12-31] MEDS ORDERED: ACETAMINOPHEN 650 MG PO ONE (12:30)
[2024-12-31] MEDS: IRON SUCROSE 300 MG in NS 250 ML IV ONE (12:36)
[2024-12-31 14:15] VITALS: BP 115/59; O2SAT 99
== END 2024-12-31 14:17 ==
LOC: M INFU 12:16
PROVIDERS: ATTEND Internal Medicine Medical Oncology
DX: D50.0 Iron deficiency anemia secondary to blood loss (chronic) (principal); Z88.8 Allergy status to other drugs, medicaments and biological substances; Z91.018 Allergy to other foods
CPT/HCPCS: 96365; 96366; 99195; J1756

== ENCOUNTER 2025-01-07 12:17 | Outpatient (CLI) | payer BC ==
[~2025-01-07] VITALS: Ht 154.9 cm; Wt 122.0 kg
[2025-01-07 12:20] VITALS: BP 124/66; O2SAT 96
[2025-01-07] MEDS ORDERED: ACETAMINOPHEN 650MG PO PRIOR TO INFUSION PO ONE (12:30)
[2025-01-07] MEDS ORDERED: diphenhydrAMINE 25MG PO PRIOR TO INFUSION PO ONE (12:30)
[2025-01-07] MEDS: IRON SUCROSE 300 MG in NS 250 ML IV ONE (12:30)
[2025-01-07 14:10] VITALS: BP 121/71; O2SAT 97
== END 2025-01-07 14:10 | disposition home or self-care (01) ==
LOC: M INFU 12:17
PROVIDERS: ATTEND Internal Medicine Medical Oncology
DX: D50.0 Iron deficiency anemia secondary to blood loss (chronic) (principal)
CPT/HCPCS: 96365; 96366; J1756

== ENCOUNTER 2025-01-21 23:51 | Emergency (ER) | payer OTHER, BC ==
[~2025-01-21] VITALS: Ht 157.5 cm; Wt 121.4 kg
[~2025-01-21 23:51] MED LIST changes: -ALBUTEROL SULFATE 2.5 MG/0.5 ML INH CONCENTRATE NEB SOLN INH PRN; -EPINEPHrine INJ 1 MG/ML 1ML AMP IM PRN; -diphenhydrAMINE 50 MG/ML VIAL IV PRN
[2025-01-22 01:07] VITALS: BP 122/73; TEMP 96.8; O2SAT 98
== END 2025-01-22 01:08 | disposition home or self-care (01) ==
LOC: M ED 23:51
DX: S63.92XA Sprain of unspecified part of left wrist and hand, initial encounter (principal); W23.2XXA Caught, crushed, jammed or pinched between a moving and stationary object, initial encounter; D64.9 Anemia, unspecified; J45.909 Unspecified asthma, uncomplicated; F32.A Depression, unspecified; F41.9 Anxiety disorder, unspecified; Y92.129 Unspecified place in nursing home as the place of occurrence of the external cause; Y93.89 Activity, other specified; Y99.0 Civilian activity done for income or pay; Z91.09 Other allergy status, other than to drugs and biological substances; Z88.8 Allergy status to other drugs, medicaments and biological substances

== ENCOUNTER 2025-02-07 13:11 | Emergency (ER) | payer BC, OTHER ==
[2025-02-07 13:39] LABS: PLATELET COUNT, AUTOMATED 304 10^3/uL (150-450)
[2025-02-07 14:06] LABS: CALCIUM LEVEL 8.9 MG/DL (8.5-10.1); CARBON DIOXIDE LEVEL 22 MMOL/L (20-31); CHLORIDE LEVEL 104 MMOL/L (98-107); CREATININE FOR GFR 0.90 MG/DL (0.55-1.30); GLOMERULAR FILTRATION RATE > 90.0 (>60); POTASSIUM SERUM 3.5 MMOL/L (3.5-5.1); SODIUM LEVEL 140 MMOL/L (136-145)
[2025-02-07] MEDS ORDERED: NYST1POW3 TOP (14:07)
[2025-02-07 16:30] VITALS: BP 109/69; O2SAT 97
[2025-02-07 16:46] VITALS: TEMP 96.9
== END 2025-02-07 16:48 | disposition home or self-care (01) ==
LOC: M ED 13:11
DX: G40.909 Epilepsy, unspecified, not intractable, without status epilepticus (principal); R00.0 Tachycardia, unspecified; J45.909 Unspecified asthma, uncomplicated; D50.9 Iron deficiency anemia, unspecified; Z79.52 Long term (current) use of systemic steroids; Z79.899 Other long term (current) drug therapy; Z91.018 Allergy to other foods; Z88.8 Allergy status to other drugs, medicaments and biological substances

== ENCOUNTER → 2025-02-10 | Outpatient (CLI) | payer BC ==
[~2025-02-10] MED LIST changes: +NYST1POW3 TOP
== END ==
LOC: M WUC 12:59
PROVIDERS: ATTEND Nurse Practitioner Family
DX: J20.9 Acute bronchitis, unspecified (principal)